=== PATIENT | male | born 1940 | race Caucasian/White ===

== ENCOUNTER 2017-08-08 11:21 | Emergency (ER) | payer MEDICARE, OTHER ==
[~2017-08-08] VITALS: Ht 185.4 cm; Wt 84.0 kg
[2017-08-08 11:22] VITALS: BP 159/76; PULSE 70; RESP 18; TEMP 98.3; O2SAT 97
[2017-08-08] MEDS ORDERED: FINA5TAB2 PO (11:41)
[2017-08-08] MEDS ORDERED: TRAZ50TA12 PO (11:41)
[2017-08-08] MEDS ORDERED: TAMS5CAP PO (11:41)
[2017-08-08] MEDS ORDERED: PRED10 PO (11:41)
[2017-08-08] MEDS ORDERED: PROP40TA3 PO (11:41)
[2017-08-08] MEDS ORDERED: SODIUM CHLOR 0.9% 1000 ML INJ 1,000 ML IV SCH (11:53)
[2017-08-08] MEDS ORDERED: SODIUM CHLORIDE 0.9% FLUSH 10 ML FLUSH IV FLUSH PRN (12:00)
--- NOTE | 2017-08-08 12:01 | PD ---
HPI Chief Complaint: Complaint Time Seen by Provider: 11:45 Travel History International Travel<30 days: No Contact w/Intl Traveler<30days: No Traveled to known affect area: No History of Present Illness HPI 76-year-old male complains of right flank pain and hematuria. Patient has history of BPH. Patient was seen by personal physician about 2 months ago for UTI. Patient was given prescription for Macrodantin. Patient took Macrodantin for 5 days and finished the medication 2 weeks ago. Patient states that he he noticed the urine turned brown and then red about a week ago. Patient states that the urine turned back to normal about 3 days ago. Patient started having right flank pain. Patient states the pain aching pain and sharp pain localized to right flank area. Patient states that the pain has been intermittent. Patient denies any nausea vomiting diaphoresis. Patient denies any dysuria or frequency. Patient denies any fever chills. Patient denies history kidney stone in the past. PFSH Past Medical History Heart Rhythm Problems: Yes Diminished Hearing: No Genitourinary: Yes (prostate problems) Headaches: Yes Medical other: Yes (headache) Psychiatric: Yes Sleep Apnea: Yes Tetanus Vaccination: > 5 Years Influenza Vaccination: No Past Surgical History Surgical History: No Previous Surgery Social History Alcohol Use: No Tobacco Use: No Substance Use: No Allergies-Medications (Allergen,Severity, Reaction): Coded Allergies: Sulfa (Sulfonamide Antibiotics) (Verified Allergy, Severe, rash, 08/08/17) Penicillins (Verified Allergy, Unknown, rash, 08/08/17) Reported Meds & Prescriptions Reported Meds & Active Scripts Active Reported Propranolol (Propranolol HCl) 40 Mg Tab 40 Mg PO Q12HR Prednisone 10 Mg Tab 7 Mg PO DAILY Finasteride 5 Mg Tab 5 Mg PO DAILY Do not crush. Flomax (Tamsulosin HCl) 0.4 Mg Cap 0.8 Mg PO DAILY Review of Systems General / Constitutional: No: Fever Eyes: No: Visual changes HENT: No: Headaches Cardiovascular: No: Chest Pain or Discomfort Respiratory: No: Shortness of Breath Gastrointestinal: No: Abdominal Pain Genitourinary: No: Dysuria Musculoskeletal: No: Pain Skin: No Rash Neurologic: No: Weakness Psychiatric: No: Depression Endocrine: No: Polydipsia Hematologic/Lymphatic: No: Easy Bruising Physical Exam Narrative GENERAL: Well-nourished, well-developed patient. SKIN: Focused skin assessment warm/dry. HEAD: Normocephalic. EYES: No scleral icterus. No injection or drainage. NECK: Supple, trachea midline. No JVD or lymphadenopathy. CARDIOVASCULAR: Regular rate and rhythm without murmurs, gallops, or rubs. RESPIRATORY: Breath sounds equal bilaterally. No accessory muscle use. GASTROINTESTINAL: Abdomen soft, non-tender, nondistended. MUSCULOSKELETAL: No cyanosis, or edema. BACK: Patient has mild to moderate tenderness and palpation right flank area, without obvious deformity. No CVA tenderness. Neurologic exam normal. Data Data Last Documented VS Vital Signs Date Time Temp Pulse Resp B/P (MAP) Pulse Ox O2 Delivery O2 Flow Rate FiO2 08/08/17 12:04 17 99 Room Air 08/08/17 11:52 64 08/08/17 11:22 98.3 Orders Orders Urinalysis - C+S If Indicated (08/08/17 11:27) Complete Blood Count With Diff (08/08/17 11:53) Comprehensive Metabolic Panel (08/08/17 11:53) Prothrombin Time / Inr (Pt) (08/08/17 11:53) Act Partial Throm Time (Ptt) (08/08/17 11:53) Ct Abd/Pel W/O Iv Contrast (08/08/17 11:53) Iv Access Insert/Monitor (08/08/17 11:53) Ecg Monitoring (08/08/17 11:53) Oximetry (08/08/17 11:53) Sodium Chlor 0.9% 1000 Ml Inj (Ns 1000 M (08/08/17 11:53) Sodium Chloride 0.9% Flush (Ns Flush) (08/08/17 12:00) Urine Culture (08/08/17 11:33) Labs Laboratory Tests Test 08/08/17 11:33 08/08/17 12:20 Urine Color LIGHT-YELLOW Urine Turbidity CLEAR Urine pH 6.5 Urine Specific [place] 1.005 Urine Protein NEG mg/dL Urine Glucose (UA) NEG mg/dL Urine Ketones NEG mg/dL Urine Occult Blood MOD Urine Nitrite NEG Urine Bilirubin NEG Urine Urobilinogen LESS THAN 2.0 MG/DL Urine Leukocyte Esterase LARGE Urine RBC 44 /hpf Urine WBC 40 /hpf Urine Transitional Epithelial Cells <1 /hpf Urine Bacteria RARE /hpf Urine Mucus FEW /lpf Microscopic Urinalysis Comment CULTURE INDICATED White Blood Count 6.5 TH/MM3 Red Blood Count 4.05 MIL/MM3 Hemoglobin 13.3 GM/DL Hematocrit 37.8 % Mean Corpuscular Volume 93.6 FL Mean Corpuscular Hemoglobin 32.9 PG Mean Corpuscular Hemoglobin Concent 35.2 % Red Cell Distribution Width 13.3 % Platelet Count 220 TH/MM3 Mean Platelet Volume 7.9 FL Neutrophils (%) (Auto) 77.9 % Lymphocytes (%) (Auto) 13.0 % Monocytes (%) (Auto) 6.4 % Eosinophils (%) (Auto) 2.3 % Basophils (%) (Auto) 0.4 % Neutrophils # (Auto) 5.1 TH/MM3 Lymphocytes # (Auto) 0.8 TH/MM3 Monocytes # (Auto) 0.4 TH/MM3 Eosinophils # (Auto) 0.1 TH/MM3 Basophils # (Auto) 0.0 TH/MM3 CBC Comment DIFF FINAL Differential Comment Prothrombin Time 10.6 SEC Prothromb Time International Ratio 1.0 RATIO Activated Partial Thromboplast Time 23.6 SEC Blood Urea Nitrogen 14 MG/DL Creatinine 0.71 MG/DL Random Glucose 103 MG/DL Total Protein 7.1 GM/DL Albumin 3.8 GM/DL Calcium Level 9.0 MG/DL Alkaline Phosphatase 59 U/L Aspartate Amino Transf (AST/SGOT) 45 U/L Alanine Aminotransferase (ALT/SGPT) 25 U/L Total Bilirubin 0.4 MG/DL Sodium Level 139 MEQ/L Potassium Level 4.1 MEQ/L Chloride Level 107 MEQ/L Carbon Dioxide Level 26.4 MEQ/L Anion Gap 6 MEQ/L Estimat Glomerular Filtration Rate 108 ML/MIN [facility] Medical Decision Making Medical Screen Exam Complete: Yes Emergency Medical Condition: Yes Interpretation(s) Last Impressions Abdomen/Pelvis CT 08/08/17 1153 Signed Impressions: Service Date/Time: Tuesday, August 08, 2017 12:09 - CONCLUSION: 1. Linear calculus along posterior aspect of left bladder diverticulum measuring about 1 cm in length. 2. No acute findings. No obstructive uropathy. Bilateral renal cysts and mild constipation. Jose Crockett MD 1318 p.m. CBC within normal limit. CMP within normal limit. UA positive for WBC or RBC and bacteria. Differential Diagnosis Differential diagnosis including musculoskeletal, nephrolithiasis, pyelonephritis, colitis, cholecystitis. Narrative Course 76-year-old male with right flank pain. Levaquin 750 mg by mouth given. Diagnosis Primary Impression: UTI (urinary tract infection) Qualified Codes: N30.01 - Acute cystitis with hematuria Additional Impression: Back pain Qualified Codes: M54.5 - Low back pain Patient Instructions: General Instructions Additional Instructions: Take medications as directed. Follow-up with personal physician. Return if worse. Med/Other Pt SpecificInfo: Prescription(s) given Scripts Acetaminophen-Codeine (Tylenol-Codeine #3) 300-30 mg Tab 1 TAB PO Q6HR Y for PAIN, #20 TAB 0 Refills Prov: Abraham Arango MD 08/08/17 Ciprofloxacin (Cipro) 500 Mg Tab 500 MG PO BID for Infection, #20 TAB 0 Refills Prov: Abraham Arango MD 08/08/17 Disposition: 01 DISCHARGE HOME Condition: Stable Abraham Arango MD Aug 08, 2017 12:01
[2017-08-08 12:04] VITALS: RESP 17; O2SAT 99
[2017-08-08 12:07] LABS: BACTERIA, URINE RARE /hpf; BILIRUBIN, URINE NEG (NEG); BLOOD, URINE MOD (NEG); GLUCOSE,URINE NEG (NEG); KETONE, URINE NEG (NEG); MUCUS URINE FEW /lpf (OCC); NITRITE,URINE NEG (NEG); PH, URINE 6.5 (5.0-8.5); TRANSITIONAL EPI CELLS, URINE <1 /hpf; URINE COLOR LIGHT-YELLOW (YELLW/STRAW); URINE LEUKOCYTE ESTERASE LARGE (NEG)
--- NOTE | 2017-08-08 12:38 | RADRPT ---
EXAM DATE/TIME: 08/08/2017 12:09 [place] COMPARISON: No previous studies available for comparison. INDICATIONS : Hematuria. ORAL CONTRAST: No oral contrast ingested. RADIATION DOSE: 16.27 CTDIvol (mGy) MEDICAL HISTORY : Irregular heart beat.Prostate problems. SURGICAL HISTORY : None. ENCOUNTER: Initial ACUITY: 3 days PAIN SCALE: 0/10 LOCATION: abdominal TECHNIQUE: Volumetric scanning of the abdomen and pelvis was performed. Using automated exposure control and ad justment of the mA and/or kV according to patient size, radiation dose was kept as low as reasonably achievable to obtain optimal diagnostic quality images. DICOM format image data is available electro nically for review and comparison. FINDINGS: No acute findings in the liver, spleen, adrenals or pancreas. Small bilateral renal cysts. No renal c alculi or obstructive uropathy Mild constipation. Large left-sided posterior bladder diverticulum. Dependent calcification along the posterior aspect of diverticulum measures about 1 cm in length. No calcified gallstones or biliary ductal dilatation. No free fluid. No bowel obstruction. CONCLUSION: 1. Linear calculus along posterior aspect of left bladder diverticulum measuring about 1 cm in length . 2. No acute findings. No obstructive uropathy. Bilateral renal cysts and mild constipation. Jose Crockett MD on August 08, 2017 at 12:33 Board Certified Radiologist. This report was verified electronically.
[2017-08-08 12:42] LABS: AUTOMATED NEUTROPHIL # 5.1 TH/MM3 (1.8-7.7); BASOPHIL % 0.4 % (0.0-2.0); EOSINOPHIL # 0.1 TH/MM3 (0-0.4); EOSINOPHIL % 2.3 % (0.0-4.0); HEMATOCRIT 37.8 % (39.0-51.0); HEMOGLOBIN 13.3 GM/DL (13.0-17.0); LYMPHOCYTE # 0.8 TH/MM3 (1.0-4.8); MEAN CELL VOLUME 93.6 FL (80.0-100.0); MEAN CORPUSCULAR HEMOGLOBIN 32.9 PG (27.0-34.0); MEAN CORPUSCULAR HGB CONC 35.2 % (32.0-36.0); MEAN PLATELET VOLUME 7.9 FL (7.0-11.0); MONO % 6.4 % (0.0-8.0); MONOCYTE # 0.4 TH/MM3 (0-0.9); NEUT % 77.9 % (16.0-70.0); PLATELET COUNT 220 TH/MM3 (150-450); RED BLOOD COUNT 4.05 MIL/MM3 (4.50-5.90); RED CELL DISTRIBUTION WIDTH 13.3 % (11.6-17.2); WHITE BLOOD COUNT 6.5 TH/MM3 (4.0-11.0)
[2017-08-08 12:51] LABS: PROTHROMBIN TIME - PATIENT 10.6 SEC (9.8-11.6)
[2017-08-08 13:05] LABS: ALBUMIN 3.8 GM/DL (3.4-5.0); ALT (GPT) 25 U/L (12-78); AST (GOT) 45 U/L (15-37); BICARBONATE 26.4 MEQ/L (21.0-32.0); BLOOD UREA NITROGEN 14 MG/DL (7-18); CHLORIDE 107 MEQ/L (98-107); CREATININE 0.71 MG/DL (0.60-1.30); GLOMERULAR FILTRATION RATE 108 ML/MIN (>89); GLUCOSE,RANDOM 103 MG/DL (74-106); SODIUM (NA) 139 MEQ/L (136-145)
[2017-08-08 13:07] LABS: ALKALINE PHOSPHATASE 59 U/L (45-117); TOTAL BILIRUBIN ADULT 0.4 MG/DL (0.2-1.0); TOTAL PROTEIN 7.1 GM/DL (6.4-8.2)
[2017-08-08 13:25] VITALS: BP 135/64; PULSE 58; RESP 16; O2SAT 98
[2017-08-08] MEDS ORDERED: TYLETAB34 PO (13:27)
[2017-08-08] MEDS ORDERED: CIPR-9 PO (13:27)
[2017-08-08 13:30] VITALS: BP 128/81; TEMP 97.8
[2017-08-08] MEDS ORDERED: LEVOFLOXACIN 750 MG TAB PO ONE (13:30)
== END 2017-08-08 13:31 | disposition home or self-care (01) ==
LOC: NEPE 11:21
DX: N30.01 Acute cystitis with hematuria (principal); M54.5 Low back pain; K59.00 Constipation, unspecified; N32.3 Diverticulum of bladder
CPT/HCPCS: 74176; 80053; 81001; 85025; 85610; 85730; 87086; 99285; J7030

== ENCOUNTER 2017-08-23 13:09 | Emergency (ER) | payer MEDICARE, OTHER ==
[~2017-08-23] VITALS: Ht 182.9 cm; Wt 84.0 kg
[~2017-08-23 13:09] MED LIST: CIPR-9 PO; FINA5TAB2 PO; PRED10 PO; PROP40TA3 PO; TAMS5CAP PO; TRAZ50TA12 PO; TYLETAB34 PO
[2017-08-23 13:18] VITALS: BP 150/84; PULSE 68; RESP 16; TEMP 98.2; O2SAT 97
[2017-08-23 13:36] VITALS: BP 150/84; PULSE 68; RESP 16; TEMP 98.2; O2SAT 97
[2017-08-23 13:55] LABS: AUTOMATED NEUTROPHIL # 5.8 TH/MM3 (1.8-7.7); BASOPHIL % 0.4 % (0.0-2.0); EOSINOPHIL # 0.1 TH/MM3 (0-0.4); EOSINOPHIL % 0.7 % (0.0-4.0); HEMATOCRIT 40.9 % (39.0-51.0); HEMOGLOBIN 13.7 GM/DL (13.0-17.0); LYMPH % 15.3 % (9.0-44.0); LYMPHOCYTE # 1.1 TH/MM3 (1.0-4.8); MEAN CELL VOLUME 93.7 FL (80.0-100.0); MEAN CORPUSCULAR HEMOGLOBIN 31.5 PG (27.0-34.0); MEAN CORPUSCULAR HGB CONC 33.6 % (32.0-36.0); MEAN PLATELET VOLUME 8.2 FL (7.0-11.0); MONO % 5.9 % (0.0-8.0); MONOCYTE # 0.4 TH/MM3 (0-0.9); NEUT % 77.7 % (16.0-70.0); PLATELET COUNT 192 TH/MM3 (150-450); RED BLOOD COUNT 4.36 MIL/MM3 (4.50-5.90); RED CELL DISTRIBUTION WIDTH 13.4 % (11.6-17.2); WHITE BLOOD COUNT 7.5 TH/MM3 (4.0-11.0)
[2017-08-23 13:57] LABS: BILIRUBIN, URINE NEG (NEG); BLOOD, URINE NEG (NEG); GLUCOSE,URINE NEG (NEG); KETONE, URINE NEG (NEG); MUCUS URINE FEW /lpf (OCC); NITRITE,URINE NEG (NEG); URINE COLOR LIGHT-YELLOW (YELLW/STRAW); URINE LEUKOCYTE ESTERASE TRACE (NEG)
--- NOTE | 2017-08-23 14:01 | PD ---
HPI . Flank pain Chief Complaint: Complaint Time Seen by Provider: 13:23 Travel History International Travel<30 days: No Contact w/Intl Traveler<30days: No Traveled to known affect area: No History of Present Illness HPI Patient presents with chief complaint of right flank pain. Onset was several weeks ago. Pain has persisted despite treatment with Cipro and Tylenol No. 3. He rates the pain 10/10. No modifying factors. He states that it is associated with a subjective fever. Patient was seen here on 08/08 with the same complaint. At that time he complained of hematuria as well. Urinalysis done that day showed positive leukocyte esterase and rare bacteria. CT of the abdomen or acute finding but showed a calculus in the bladder. Urine culture was positive for aerococcus urinae. Sensitivities were not done. PFSH Past Medical History Heart Rhythm Problems: Yes Diminished Hearing: No Genitourinary: Yes (prostate problems) Headaches: Yes Medical other: Yes (PMI) Psychiatric: Yes Sleep Apnea: Yes Tetanus Vaccination: Unknown Influenza Vaccination: Yes Past Surgical History Surgical History: No Previous Surgery Social History Alcohol Use: No Tobacco Use: No Substance Use: No Allergies-Medications (Allergen,Severity, Reaction): Coded Allergies: Sulfa (Sulfonamide Antibiotics) (Verified Allergy, Severe, rash, 08/23/17) Penicillins (Verified Allergy, Unknown, rash, 08/23/17) Reported Meds & Prescriptions Reported Meds & Active Scripts Active Tylenol-Codeine #3 (Acetaminophen-Codeine) 300-30 mg Tab 1 Tab PO Q6HR PRN Cipro (Ciprofloxacin HCl) 500 Mg Tab 500 Mg PO BID Reported Trazodone (Trazodone HCl) 50 Mg Tab 50 Mg PO HS Propranolol (Propranolol HCl) 40 Mg Tab 40 Mg PO Q12HR Prednisone 10 Mg Tab 7 Mg PO DAILY Finasteride 5 Mg Tab 5 Mg PO DAILY Do not crush. Flomax (Tamsulosin HCl) 0.4 Mg Cap 0.8 Mg PO DAILY Review of Systems Except as stated in HPI: all other systems reviewed are Neg General / Constitutional: Positive: Fever, Chills Genitourinary: Positive: Flank Pain Physical Exam Narrative GENERAL: Awake and alert and in no acute distress. Using the FLACC Allison pain scale, his pain level is 1/10. He had an occasional grimace. SKIN: Warm and dry. Normal color. No rash in the flank area. HEAD: Normocephalic/atraumatic. EYES: Pupils are equal. Extraocular movements are intact. NECK: Normal range of motion. CARDIOVASCULAR: Regular rate and rhythm. RESPIRATORY: Nonlabored respirations. ABDOMEN: Abdomen is soft and nontender. : There is no CVA tenderness. MUSCULOSKELETAL: Atraumatic. NEUROLOGICAL: Nonfocal. PSYCHIATRIC: Appropriate mood and affect. Data Data Last Documented VS Vital Signs Date Time Temp Pulse Resp B/P (MAP) Pulse Ox O2 Delivery O2 Flow Rate FiO2 08/23/17 13:36 98.2 68 16 150/84 (106) 97 Room Air Orders Orders Urinalysis - C+S If Indicated (08/23/17 13:31) Complete Blood Count With Diff (08/23/17 13:31) Labs Laboratory Tests Test 08/23/17 13:40 White Blood Count 7.5 TH/MM3 Red Blood Count 4.36 MIL/MM3 Hemoglobin 13.7 GM/DL Hematocrit 40.9 % Mean Corpuscular Volume 93.7 FL Mean Corpuscular Hemoglobin 31.5 PG Mean Corpuscular Hemoglobin Concent 33.6 % Red Cell Distribution Width 13.4 % Platelet Count 192 TH/MM3 Mean Platelet Volume 8.2 FL Neutrophils (%) (Auto) 77.7 % Lymphocytes (%) (Auto) 15.3 % Monocytes (%) (Auto) 5.9 % Eosinophils (%) (Auto) 0.7 % Basophils (%) (Auto) 0.4 % Neutrophils # (Auto) 5.8 TH/MM3 Lymphocytes # (Auto) 1.1 TH/MM3 Monocytes # (Auto) 0.4 TH/MM3 Eosinophils # (Auto) 0.1 TH/MM3 Basophils # (Auto) 0.0 TH/MM3 CBC Comment DIFF FINAL Differential Comment Urine Color LIGHT-YELLOW Urine Turbidity CLEAR Urine pH 7.0 Urine Specific [place] 1.007 Urine Protein NEG mg/dL Urine Glucose (UA) NEG mg/dL Urine Ketones NEG mg/dL Urine Occult Blood NEG Urine Nitrite NEG Urine Bilirubin NEG Urine Urobilinogen LESS THAN 2.0 MG/DL Urine Leukocyte Esterase TRACE Urine RBC 1 /hpf Urine WBC 3 /hpf Urine Mucus FEW /lpf Microscopic Urinalysis Comment CULT NOT INDICATED MDM Medical Decision Making Medical Screen Exam Complete: Yes Emergency Medical Condition: Yes Medical Record Reviewed: Yes (please see his HPI for pertinent review of records) Differential Diagnosis Differential diagnosis of flank pain includes but is not limited to kidney stone , pyelonephritis, musculoskeletal pain, PE Narrative Course Patient presents with a chief complaint of persistent right flank pain. He has been recently treated for possible UTI with Cipro. He has completed his course of Cipro but continues to have the flank pain associated with subjective fever. I will recheck his CBC and urinalysis. He had a CT done on the . That will not be repeated. CBC Diagram 08/23/17 13:40 UA>>trace LE, 3 WBC The etiology of his flank pain has not been discovered. However, he has no emergent medical condition. The history, exam, diagnostic testing, and current condition do not suggest any significant pathology to warrant further testing, continued ED treatment, admission, or surgical evaluation at this point. No EMC was found. The patient 's condition is stable and appropriate for discharge. Diagnosis Primary Impression: Right flank pain Patient Instructions: Flank Pain (ED), General Instructions Additional Instructions: Follow-up with her primary care provider if symptoms continue. Med/Other Pt SpecificInfo: Prescription(s) given Scripts Tramadol (Ultram) 50 Mg Tab 50 MG PO Q4H Y for PAIN, #12 TAB 0 Refills Prov: Kenia Ortiz MD 08/23/17 Disposition: 01 DISCHARGE HOME Condition: Stable Kenia Ortiz MD Aug 23, 2017 14:01
[2017-08-23] MEDS ORDERED: TRAM50 PO (14:04)
== END 2017-08-23 14:16 | disposition home or self-care (01) ==
LOC: NEPD 13:09
DX: R10.9 Unspecified abdominal pain (principal)
CPT/HCPCS: 81001; 85025; 99283

== ENCOUNTER 2017-12-18 18:25 | Emergency (ER) | END 2017-12-19 00:41 | disposition home or self-care (01) | DX: N39.0 Urinary tract infection, site not specified (principal); N32.3 Diverticulum of bladder; N40.0 Benign prostatic hyperplasia without lower urinary tract symptoms | CPT/HCPCS: 76775; 80053; 81001; 85025; 87086; 96374; 99284; J1885; J7030 ==